=== PATIENT | male | born 1960 | race Caucasian/White ===

== ENCOUNTER 2025-03-18 17:16 | Observation (INO) | payer OTHER ==
[~2025-03-18] VITALS: Ht 170.2 cm; Wt 81.9 kg
[~2025-03-18 17:16] MED LIST: ASPI81CH PO; ATOR40TA PO; CLOP75 PO; LISI20 PO; LISI5 PO; METO25 PO; NITR.4SL SL
[2025-03-18 17:55] LABS: BASOPHILS ABSOLUTE AUTO 0.09 K/mm3 (0.00-0.23); BASOPHILS PERCENT AUTO 1 % (0-2); EOSINOPHILS ABSOLUTE AUTO 0.43 K/mm3 (0.00-0.68); EOSINOPHILS PERCENT AUTO 3 % (0-6); Hematocrit 43.9 % (37.0-53.0); Hemoglobin 15.3 g/dL (13.5-17.5); IMMATURE GRAN ABSOLUTE AUTO 0.04 K/mm3 (0.00-0.10); IMMATURE GRAN PERCENT AUTO 0 % (0-1); LYMPHOCYTES ABSOLUTE AUTO 4.38 K/mm3 (0.84-5.20); LYMPHOCYTES PERCENT AUTO 31 % (21-46); MONOCYTES ABSOLUTE AUTO 0.93 K/mm3 (0.16-1.47); MONOCYTES PERCENT AUTO 7 % (4-13); Mean Corpuscular HGB Conc 34.9 g/dL (31.5-36.5); Mean Corpuscular Volume 86 fL (80-100); NEUTROPHILS ABSOLUTE AUTO 8.19 K/mm3 (1.96-9.15); NEUTROPHILS PERCENT AUTO 58 % (41-73); NRBC ABSOLUTE 0.00 K/mm3 (0.00-0.02); NRBC Auto 0.0 /100 WBC (0.0-0.2); Platelet Count 325 K/mm3 (150-400); RDW Coefficient Variation 12.7 % (11.7-14.2); RDW Standard Deviation 39.8 fL (35.1-46.3)
[2025-03-18 18:09] LABS: Prothrombin Time Results 11.4 Sec (9.7-11.5)
[2025-03-18 18:42] LABS: Alanine Aminotransfer (ALT/SGP 19.0 U/L (12-78); Albumin, Blood 3.3 g/dL (3.4-5.0); Albumin/Globulin Ratio 0.8 (0.8-1.8); Anion Gap 9.0 mmol/L (3-11); Aspartate Aminotrans (AST/SGOT 11.0 U/L (12-37); Bilirubin, Total 0.5 mg/dL (0.1-1.0); Blood Urea Nitrogen 15.0 mg/dL (8-24); CO2, Blood 25.0 mmol/L (21-32); Calcium, Blood 9.0 mg/dL (8.5-10.1); Chloride, Blood 104.0 mmol/L (98-108); Creatinine, Blood 0.85 mg/dL (0.60-1.20); Globulin, Blood 4.2 g/dL (2.2-4.0); Glucose, Blood 89.0 mg/dL (70-99); Potassium, Blood 4.2 mmol/L (3.5-5.5); Sodium, Blood 134.0 mmol/L (136-145); Total Protein, Blood 7.5 g/dL (6.4-8.2)
[2025-03-18 21:42] VITALS: BP 170/87
[2025-03-18] MEDS ORDERED: Labetalol HCL 5 MG/ML 4ML Injection (Single Dose) IV PRN (22:10)
[2025-03-18 22:58] LABS: Hematocrit 41.6 % (37.0-53.0); Hemoglobin 14.4 g/dL (13.5-17.5)
[2025-03-19 02:14] VITALS: BP 132/68
--- NOTE | 2025-03-19 05:17 | NUR ---
SHIFT SUMMARY PT ARRIVED FROM ER AROUND 2144. PT ORIENTED TO ROOM. A&Ox4 AND PLEASANT. NO C/O PAIN. NO EVENTS ON TELE AND PT RUNNING SR IN THE 70's. TELE IS SR IN THE INDEPENDENT IN ROOM. PT REPORTS HAVING 3 MORE BM'S AND STATED THAT BLOOD IN STOOL IS LESSENING. PT REFUSED MORING LABS BUT WITH SOME EDUCATION, PT AGREED TO HAVE LABS DRAWN. VSS. BED IN LOWEST POSITION AND CALL LIGHT IN REACH.
[2025-03-19 06:13] LABS: BASOPHILS ABSOLUTE AUTO 0.08 K/mm3 (0.00-0.23); BASOPHILS PERCENT AUTO 1 % (0-2); EOSINOPHILS ABSOLUTE AUTO 0.46 K/mm3 (0.00-0.68); EOSINOPHILS PERCENT AUTO 4 % (0-6); Hematocrit 40.2 % (37.0-53.0); Hemoglobin 13.5 g/dL (13.5-17.5); IMMATURE GRAN ABSOLUTE AUTO 0.04 K/mm3 (0.00-0.10); IMMATURE GRAN PERCENT AUTO 0 % (0-1); LYMPHOCYTES ABSOLUTE AUTO 3.27 K/mm3 (0.84-5.20); LYMPHOCYTES PERCENT AUTO 29 % (21-46); MONOCYTES ABSOLUTE AUTO 0.92 K/mm3 (0.16-1.47); MONOCYTES PERCENT AUTO 8 % (4-13); Mean Corpuscular HGB Conc 33.6 g/dL (31.5-36.5); Mean Corpuscular Volume 87 fL (80-100); NEUTROPHILS ABSOLUTE AUTO 6.63 K/mm3 (1.96-9.15); NEUTROPHILS PERCENT AUTO 58 % (41-73); NRBC ABSOLUTE 0.00 K/mm3 (0.00-0.02); NRBC Auto 0.0 /100 WBC (0.0-0.2); Platelet Count 286 K/mm3 (150-400); RDW Coefficient Variation 12.9 % (11.7-14.2); RDW Standard Deviation 41.0 fL (35.1-46.3)
[2025-03-19 06:35] LABS: Anion Gap 9.0 mmol/L (3-11); Blood Urea Nitrogen 19.0 mg/dL (8-24); CO2, Blood 23.0 mmol/L (21-32); Calcium, Blood 8.4 mg/dL (8.5-10.1); Chloride, Blood 106.0 mmol/L (98-108); Creatinine, Blood 0.47 mg/dL (0.60-1.20); Glucose, Blood 105.0 mg/dL (70-99); Potassium, Blood 3.8 mmol/L (3.5-5.5); Sodium, Blood 134.0 mmol/L (136-145)
[2025-03-19 07:33] VITALS: BP 154/73
[2025-03-19 11:23] VITALS: BP 130/60
[2025-03-19 13:24] LABS: Hematocrit 42.1 % (37.0-53.0); Hemoglobin 14.4 g/dL (13.5-17.5)
[2025-03-19 15:42] VITALS: BP 135/72
--- NOTE | 2025-03-19 17:35 | NUR ---
SHIFT SUMMARY PT AOX4, INDEPENDENT IN THE ROOM. NO ACUTE EVENTS THIS SHIFT. PT REPOSITIONS SELF IN BED. NO BLOODY BM'S THE MAJORITY OF THIS SHIFT. PT IS JUST WAITING ON SURGEON TO CONSULT. THE SURGEON HAS NOT BEEN SEEN YET THIS SHIFT. PT HAS HAD NO COMPLAINTS AND REMAINS ON A CLEAR LIQUID DIET. HE IS EAGER TO GO HOME. CALL LIGHT WITHIN REACH, BED LOCKED AND IN THE LOWEST POSITION. WILL REPORT TO ONCOMING NURSE.
[2025-03-19 19:52] VITALS: BP 139/70
[2025-03-20 02:04] VITALS: BP 114/69
[2025-03-20 05:16] VITALS: BP 125/70
[2025-03-20 05:37] LABS: Hematocrit 42.2 % (37.0-53.0); Hemoglobin 14.4 g/dL (13.5-17.5); Mean Corpuscular HGB Conc 34.1 g/dL (31.5-36.5); Mean Corpuscular Volume 87 fL (80-100); NRBC ABSOLUTE 0.00 K/mm3 (0.00-0.02); NRBC Auto 0.0 /100 WBC (0.0-0.2); Platelet Count 301 K/mm3 (150-400); RDW Coefficient Variation 12.6 % (11.7-14.2); RDW Standard Deviation 39.8 fL (35.1-46.3)
--- NOTE | 2025-03-20 06:46 | NUR ---
SHIFT SUMMARY PT A&Ox4 AND PLEASANT. PT STATED SEVERAL TIMES THAT HE WANTED TO GO HOME AND "WHY AM I EVEN HERE" EDUCATION GIVEN AND PT AGREED TO STAY FOR THE NIGHT. NIGHT TIME METOPROLOL HELD D/T HR IN THE 50's. PT HAD ONE FORMED BM DURING THE NIGHT WITH SMALL AMOUNT OF BRIGHT RED BLOOD NOTED. NO C/O PAIN. IND IN ROOM. BED IN LOWEST POSITION AND CALL LIGHT IN REACH.
[2025-03-20 07:05] VITALS: BP 132/74
--- NOTE | 2025-03-20 11:47 | NUR ---
DC SUMMARY PT DC THIS SHIFT DC INSTRUCTION GONE OVER WITH PT WHOM STATED UNDERSTANDING. PT DECLINED TO HAVE STAFF ASSIST OUT. PT NOTED TO HAVE A STEADY GAIT AND WALKED TO ELEVATED BY THIS NURSE.
== END 2025-03-20 11:48 | disposition home or self-care (01) ==
LOC: ER 17:16 → MEDS 17:17
PROVIDERS: Internal Medicine; Nurse Practitioner Acute Care; Student in an Organized Health Care Education/Training Program; ADMIT Student in an Organized Health Care Education/Training Program
DX: K92.1 Melena (principal); I10 Essential (primary) hypertension; I25.10 Atherosclerotic heart disease of native coronary artery without angina pectoris; I25.2 Old myocardial infarction; Z95.5 Presence of coronary angioplasty implant and graft; D72.829 Elevated white blood cell count, unspecified; E78.5 Hyperlipidemia, unspecified; Z79.02 Long term (current) use of antithrombotics/antiplatelets; Z79.82 Long term (current) use of aspirin; Z79.899 Other long term (current) drug therapy
CPT/HCPCS: 36415; 74177; 80048; 80053; 83690; 85014; 85018; 85025; 85027; 85610; 86850; 86900; 86901; 99285-25; A9270; G0378; Q9967